=== PATIENT | male | born 1935 | race Caucasian/White ===

== ENCOUNTER 2024-02-09 18:43 | Emergency (ER) | payer SELFPAY ==
[~2024-02-09] VITALS: Ht 172.7 cm; Wt 81.0 kg
[2024-02-09 18:53] VITALS: O2SAT 100
[2024-02-09] MEDS: SODIUM CHLORIDE 0.9% 1,000 ML IV ONE (19:45)
[2024-02-09 20:07] LABS: CLARITY URINE CLEAR (CLEAR); COLOR URINE YELLOW (YELLOW); GLUCOSE URINE NEGATIVE (NEGATIVE); KETONES URINE NEGATIVE (NEGATIVE); LEUKOCYTE ESTERASE URINE NEGATIVE (NEGATIVE); NITRITE URINE NEGATIVE (NEGATIVE); OCCULT BLOOD URINE NEGATIVE (NEGATIVE); PROTEIN URINE NEGATIVE (NEGATIVE); SPECIFIC GRAVITY URINE 1.019 (1.005-1.030)
[2024-02-09 20:22] LABS: BASOPHILS % 1.2 % (0.0-2.0); EOSINOPHILS % 3.8 % (0.0-5.0); HEMATOCRIT. 39.1 % (42.0-52.0); HEMOGLOBIN. 13.2 g/dL (14.0-18.0); MEAN CORPUSCULAR HEMOGLOBIN 30.3 pg (28.0-32.0); MEAN CORPUSCULAR HGB CONC 33.6 g/dL (31.0-37.0); MEAN CORPUSCULAR VOLUME 90.2 fL (80.0-94.0); MEAN PLATELET VOLUME 7.9 fl (7.4-10.4); MONOCYTES % 8.7 % (2.0-8.0); NEUTROPHILS % 56.3 % (40.0-76.0); PLATELET 227 x1000/uL (130-400); RED BLOOD CELL COUNT 4.33 mill/uL (4.7-6.1); RED CELL DISTRIBUTION WIDTH 15.1 % (11.6-14.6); WHITE BLOOD COUNT 6.8 x1000/uL (4.5-11.0)
[2024-02-09 20:25] LABS: CHLORIDE 108 mEq/L (98-107); POTASSIUM 4.5 mEq/L (3.5-5.1); SODIUM 142 mEq/L (136-145)
[2024-02-09 20:26] LABS: CALCIUM 9.3 mg/dL (8.7-10.4); CARBON DIOXIDE 29 mEq/L (21-32)
[2024-02-09 20:31] LABS: CREATININE 1.1 mg/dL (0.6-1.3); GLUCOSE 77 mg/dL (70-105); UREA NITROGEN BLOOD 13 mg/dL (9-23)
[2024-02-09 20:32] LABS: TROPONIN I HIGH SENSITIVITY 5 ng/L (3.0-53)
[2024-02-09 20:33] LABS: ALANINE AMINOTRANSFERASE < 7 IU/L (10-49); ASPARTATE AMINOTRANSFERASE 15 IU/L (<34); BILIRUBIN DIRECT 0.1 mg/dL (<=3.0); BILIRUBIN TOTAL 0.6 mg/dL (0.1-1.0)
[2024-02-09 20:34] LABS: PROTEIN TOTAL 6.6 g/dL (6.0-8.3)
[2024-02-09] MEDS ORDERED: IOHEXOL-300 100 ML BOTTLE ONE (23:54)
[2024-02-10] MEDS ORDERED: AMOX1TAB16 MT (00:45)
[2024-02-10] MEDS ORDERED: IBUP-2028 MT (00:45)
[2024-02-10] MEDS: CEFTRIAXONE 1GM/50ML 50 ML IV ONE (01:57)
[2024-02-10 02:58] VITALS: BP 123/69; PULSE 71; RESP 16; TEMP 36.61404; O2SAT 98
== END 2024-02-10 03:00 | disposition home or self-care (01) ==
LOC: ER 18:43
DX: K57.90 Diverticulosis of intestine, part unspecified, without perforation or abscess without bleeding (principal); I10 Essential (primary) hypertension; J45.909 Unspecified asthma, uncomplicated; Z98.890 Other specified postprocedural states
CPT/HCPCS: 80076; 80048; 81003; 83690; 85025; 86850; 86900; 86901; 84484; 36415; 74177; 93005; 96361; 99285; 96365; Q9967; J7030; Z7610 ×2; J0696

== ENCOUNTER 2025-05-27 15:05 | Emergency (ER) | payer MEDICARE, MEDICAID ==
[~2025-05-27] VITALS: Ht 165.1 cm; Wt 69.0 kg
[~2025-05-27 15:05] MED LIST: AMLO5TAB6 MT; HYDR25SU7 RC; METR-167 MT
[2025-05-27 15:15] VITALS: O2SAT 95
[2025-05-27 15:22] VITALS: BP 123/58; PULSE 55; RESP 16; TEMP 36.8; O2SAT 97
[2025-05-27 18:06] LABS: CLARITY URINE TURBID (CLEAR); COLOR URINE YELLOW (YELLOW); GLUCOSE URINE NEGATIVE (NEGATIVE); KETONES URINE NEGATIVE (NEGATIVE); LEUKOCYTE ESTERASE URINE 3+ (NEGATIVE); NITRITE URINE POSITIVE (NEGATIVE); OCCULT BLOOD URINE 2+ (NEGATIVE); PH URINE >=9.0 (4.5-8.0); PROTEIN URINE 2+ (NEGATIVE); SPECIFIC GRAVITY URINE 1.015 (1.005-1.030); UROBILINOGEN URINE 0.2 E.U./dL (0.2-1.0)
[2025-05-27 18:21] LABS: BACTERIA URINE 3+; RBC URINE 25-50 /hpf (0-2); SQUAMOUS EPITHELIAL CELL URINE FEW /lpf (RARE/1+)
[2025-05-27] MEDS ORDERED: CEFP200T13 MT (18:43)
[2025-05-27] MEDS: CEPHALEXIN 250MG CAPSULE PO ONE (19:18)
== END 2025-05-27 19:24 | disposition home or self-care (01) ==
LOC: ER 15:05
DX: T83.9XXA Unspecified complication of genitourinary prosthetic device, implant and graft, initial encounter (principal); N39.0 Urinary tract infection, site not specified; I10 Essential (primary) hypertension; E11.9 Type 2 diabetes mellitus without complications; J45.909 Unspecified asthma, uncomplicated; Z79.899 Other long term (current) drug therapy; Y84.6 Urinary catheterization as the cause of abnormal reaction of the patient, or of later complication, without mention of misadventure at the time of the procedure
CPT/HCPCS: 51702; 81003; 99284